=== PATIENT | female | born 1950 | race Caucasian/White ===

== ENCOUNTER 2017-10-22 16:29 | Inpatient (IN) | payer OTHER, MEDICARE ==
[2017-10-22] MEDS: IV NORMAL SALINE 1000ML BAG 1,000 ML IV ×2 (17:00→19:36)
[2017-10-22 17:07] LABS: BILIRUBIN,URINE MODERATE (NEG); CLARITY,URINE TURBID; COLOR,URINE AMBER; GLUCOSE,URINE NEGATIVE (NEG); NITRITE,URINE NEGATIVE (NEG); PH,URINE 5.5; PROTEIN,URINE 30 mg/dL (NEG-TRACE)
[2017-10-22 17:13] LABS: BACTERIA,URINE MANY /HPF (0-FEW); WBC,URINE TNTC /HPF (0-4)
[2017-10-22 17:38] LABS: ADD MAN DIFF? NO
[2017-10-22 17:40] LABS: BASO % 0 % (0-3); EOS % 0 % (0-3); HEMATOCRIT 46.7 % (36.0-47.0); HEMOGLOBIN 15.2 g/dL (12.0-15.5); LYMPH # 2.3 x10^3/uL (1.0-4.8); LYMPH % 15 % (24-48); MEAN CORPUSCULAR HEMOGLOBIN 29 pg (25-35); MEAN CORPUSCULAR HGB CONC 33 g/dL (31-37); MEAN CORPUSCULAR VOLUME 89 fL (79-100); MONO # 0.7 x10^3/uL (0.0-1.1); MONO % 5 % (0-9); NEUT # 12.1 x10^3uL (1.8-7.7); NEUT % 80 % (31-73); PLATELET COUNT 276 x10^3/uL (140-400); RED BLOOD COUNT 5.24 x10^6/uL (3.50-5.40); RED CELL DISTRIBUTION WIDTH 14.7 % (11.5-14.5); WHITE BLOOD COUNT 15.1 x10^3/uL (4.0-11.0)
[2017-10-22 17:58] LABS: LACTIC ACID 3.5 mmol/L (0.4-2.0)
[2017-10-22 18:13] LABS: ALBUMIN 2.3 g/dL (3.4-5.0); ALBUMIN/GLOBULIN RATIO 0.5 (1.0-1.7); ALK PHOS 68 U/L (46-116); ALT (SGPT) 9 U/L (14-59); ANION GAP 12 (6-14); AST (SGOT) 12 U/L (15-37); BLOOD UREA NITROGEN 68 mg/dL (7-20); BUN/CREATININE RATIO 45 (6-20); CALCIUM 9.4 mg/dL (8.5-10.1); CARBON DIOXIDE 26 mmol/L (21-32); CHLORIDE 119 mmol/L (98-107); CREATININE 1.5 mg/dL (0.6-1.0); GFR 34.4; GLUCOSE 94 mg/dL (70-99); SODIUM 157 mmol/L (136-145); TOTAL BILIRUBIN 0.5 mg/dL (0.2-1.0); TOTAL PROTEIN 6.8 g/dL (6.4-8.2)
[2017-10-22 18:23] LABS: POTASSIUM 2.9 mmol/L (3.5-5.1)
[2017-10-22] MEDS ORDERED: IV NORMAL SALINE 1000ML BAG 1,000 ML IV (18:56)
[2017-10-22] MEDS ORDERED: PIP/TAZO PER PHARMACY MC (19:00)
[2017-10-22] MEDS ORDERED: ONDANSETRON PF 4 MG/2 ML VIAL. IV (19:00)
[2017-10-22] MEDS ORDERED: ACETAMINOPHEN 325 MG TABLET. PO (19:00)
[2017-10-22] MEDS ORDERED: fentaNYL PF VIAL 100 MCG/2 ML VIAL IV (19:00)
[2017-10-22] MEDS: VANCOMYCIN 1.5 GM in IV 1/2 NORMAL SALINE 500 ML IV (19:35)
[2017-10-22] MEDS: PIPERACILLIN/TAZOBACTAM 3.375 GM in IV NORMAL SALINE 50ML 50 ML IV (19:36)
[2017-10-22] MEDS: POTASSIUM CHLORIDE 10MEQ 100 ML IV ×4 (19:36→23:14)
[2017-10-22] MEDS: VANCOMYCIN PER PHARMACY MC (19:46)
[2017-10-22 21:59] LABS: LACTIC ACID 2.1 mmol/L (0.4-2.0)
[2017-10-23] MEDS: PIPERACILLIN/TAZOBACTAM 3.375 GM in IV NORMAL SALINE 50ML 50 ML IV ×4 (00:30→17:29)
[2017-10-23] MEDS: IV 1/2 NORMAL SALINE 500 ML IV (01:16)
[2017-10-23] MEDS ORDERED: PNEUMOCOCCAL VAX SCREEN BY RX. MC (02:45)
[2017-10-23] MEDS: IV 1/2 NORMAL SALINE 1,000 ML IV (03:37)
[2017-10-23 04:54] LABS: ANION GAP 17 (6-14); BLOOD UREA NITROGEN 56 mg/dL (7-20); CALCIUM 8.9 mg/dL (8.5-10.1); CARBON DIOXIDE 22 mmol/L (21-32); CHLORIDE 118 mmol/L (98-107); CREATININE 1.3 mg/dL (0.6-1.0); GFR 40.6; GLUCOSE 62 mg/dL (70-99); SODIUM 157 mmol/L (136-145)
[2017-10-23 08:25] LABS: ADD MAN DIFF? NO; BASO % 0 % (0-3); EOS % 0 % (0-3); HEMATOCRIT 37.8 % (36.0-47.0); HEMOGLOBIN 11.9 g/dL (12.0-15.5); LYMPH # 2.2 x10^3/uL (1.0-4.8); LYMPH % 20 % (24-48); MEAN CORPUSCULAR HEMOGLOBIN 29 pg (25-35); MEAN CORPUSCULAR HGB CONC 32 g/dL (31-37); MEAN CORPUSCULAR VOLUME 91 fL (79-100); MONO # 0.6 x10^3/uL (0.0-1.1); MONO % 6 % (0-9); NEUT # 8.3 x10^3uL (1.8-7.7); NEUT % 74 % (31-73); PLATELET COUNT 168 x10^3/uL (140-400); RED BLOOD COUNT 4.16 x10^6/uL (3.50-5.40); RED CELL DISTRIBUTION WIDTH 14.6 % (11.5-14.5); WHITE BLOOD COUNT 11.1 x10^3/uL (4.0-11.0)
[2017-10-23] MEDS ORDERED: NOREPINEPHRIN 8MG/250ML PREMIX 250 ML IV (09:03)
[2017-10-23 09:10] LABS: BASE EXCESS ABG -4 mmol/L (-3-3); HCO3 ABG 22 mmol/L (21-28); PCO2 ABG 41 mmHg (35-46); PH ABG 7.34 (7.35-7.45); PO2 ABG 336 mmHg (65-108); SAT O2 ABG 99 % (92-99)
[2017-10-23 09:17] LABS: FIO2 ABG 100
[2017-10-23 09:19] LABS: POC GLUCOSE 67 mg/dL (70-99)
[2017-10-23 09:21] LABS: POC GLUCOSE 93 mg/dL (70-99)
[2017-10-23] MEDS ORDERED: ONDANSETRON PF 4 MG/2 ML VIAL. IV (10:30)
[2017-10-23] MEDS ORDERED: ACETAMINOPHEN 325 MG TABLET. PO (10:30)
[2017-10-23] MEDS ORDERED: DOCUSATE SODIUM 100 MG CAPSULE. PO (10:30)
[2017-10-23] MEDS ORDERED: traMADol 50 MG TABLET PO (10:30)
[2017-10-23] MEDS ORDERED: hydrALAZINE 20 MG/ML VIAL. IVP (10:30)
[2017-10-23 10:42] LABS: THYROID STIM HORMONE (TSH) 4.257 uIU/mL (0.358-3.74)
[2017-10-23] MEDS: MORPHINE SULFATE 2 MG/ML DISP.SYRIN. IV (10:48)
[2017-10-23] MEDS: NOREPINEPHRIN 8MG/250ML PREMIX 250 ML IV (10:48)
[2017-10-23] MEDS: IV NORMAL SALINE 1000ML BAG 1,000 ML IV (10:49)
[2017-10-23] MEDS: IV DEXTROSE 5% 1,000 ML IV ×2 (11:32→19:27)
[2017-10-23 11:36] LABS: SEDIMENTATION RATE 30 (0-25)
[2017-10-23] MEDS: VANCOMYCIN PER PHARMACY MC (12:08)
[2017-10-23 12:20] LABS: TROPONINI 0.042 ng/mL (0.000-0.055)
[2017-10-23 12:23] LABS: FREE T4 1.22 ng/dL (0.76-1.46)
[2017-10-23] MEDS: HEPARIN PF for SUB-Q USE 5,000 UNIT/0.5 ML VIAL. SQ ×2 (14:04→22:06)
[2017-10-23] MEDS: FUROSEMIDE 40 MG/4 ML VIAL. IVP (14:34)
[2017-10-23] MEDS ORDERED: VANCOMYCIN 1 GM in IV DEXTROSE 5% 250 ML IV (19:00)
[2017-10-23] MEDS: VANCOMYCIN 1 GM in IV NORMAL SALINE 250ML 250 ML IV (19:25)
[2017-10-23 20:09] LABS: TROPONINI 0.048 ng/mL (0.000-0.055)
[2017-10-23 21:20] LABS: POC GLUCOSE 116 mg/dL (70-99)
[2017-10-23] MEDS: FAMOTIDINE 20 MG/2 ML VIAL IVP (21:58)
[2017-10-24 00:26] LABS: POC GLUCOSE 163 mg/dL (70-99)
[2017-10-24] MEDS: PIPERACILLIN/TAZOBACTAM 3.375 GM in IV NORMAL SALINE 50ML 50 ML IV ×4 (00:26→18:11)
[2017-10-24 04:57] LABS: ADD MAN DIFF? NO
[2017-10-24 05:07] LABS: BASO % 0 % (0-3); EOS % 0 % (0-3); HEMATOCRIT 36.1 % (36.0-47.0); HEMOGLOBIN 11.9 g/dL (12.0-15.5); LYMPH # 2.6 x10^3/uL (1.0-4.8); LYMPH % 17 % (24-48); MEAN CORPUSCULAR HEMOGLOBIN 29 pg (25-35); MEAN CORPUSCULAR HGB CONC 33 g/dL (31-37); MEAN CORPUSCULAR VOLUME 87 fL (79-100); MONO # 0.9 x10^3/uL (0.0-1.1); MONO % 6 % (0-9); NEUT # 11.4 x10^3uL (1.8-7.7); NEUT % 76 % (31-73); PLATELET COUNT 230 x10^3/uL (140-400); RED BLOOD COUNT 4.17 x10^6/uL (3.50-5.40); RED CELL DISTRIBUTION WIDTH 14.3 % (11.5-14.5)
[2017-10-24 05:36] LABS: ANION GAP 10 (6-14); BLOOD UREA NITROGEN 33 mg/dL (7-20); CALCIUM 8.1 mg/dL (8.5-10.1); CARBON DIOXIDE 25 mmol/L (21-32); CHLORIDE 115 mmol/L (98-107); CREATININE 1.3 mg/dL (0.6-1.0); GFR 40.6; GLUCOSE 177 mg/dL (70-99); SODIUM 150 mmol/L (136-145)
[2017-10-24 05:39] LABS: POTASSIUM 2.4 mmol/L (3.5-5.1)
[2017-10-24] MEDS: HEPARIN PF for SUB-Q USE 5,000 UNIT/0.5 ML VIAL. SQ ×3 (06:12→22:14)
[2017-10-24] MEDS: POTASSIUM CHLORIDE 40 MEQ in IV DEXTROSE 5% 1,000 ML IV ×2 (06:13→13:20)
[2017-10-24 06:27] LABS: POC GLUCOSE 169 mg/dL (70-99)
[2017-10-24] MEDS: NOREPINEPHRIN 8MG/250ML PREMIX 250 ML IV ×2 (08:27→22:10)
[2017-10-24] MEDS: IPRATROPIUM BROMIDE 0.5 MG/2.5 ML NEBU. NEB ×4 (09:15→20:03)
[2017-10-24] MEDS: VANCOMYCIN PER PHARMACY MC ×2 (10:15→19:29)
[2017-10-24 13:10] LABS: POC GLUCOSE 196 mg/dL (70-99)
[2017-10-24 19:01] LABS: VANC TR 19.8 mcg/mL (10.0-20.0)
[2017-10-24] MEDS: VANCOMYCIN 1 GM in IV NORMAL SALINE 250ML 250 ML IV (19:12)
[2017-10-24 19:21] LABS: POC GLUCOSE 253 mg/dL (70-99)
[2017-10-24] MEDS: FAMOTIDINE 20 MG/2 ML VIAL IVP (22:09)
[2017-10-24] MEDS: IV DEXTROSE 5% 1,000 ML IV (22:10)
[2017-10-24] MEDS: MORPHINE SULFATE 2 MG/ML DISP.SYRIN. IV (22:12)
[2017-10-25] MEDS: PIPERACILLIN/TAZOBACTAM 3.375 GM in IV NORMAL SALINE 50ML 50 ML IV ×5 (00:38→23:50)
[2017-10-25] MEDS: MORPHINE SULFATE 2 MG/ML DISP.SYRIN. IV (02:58)
[2017-10-25] MEDS: HEPARIN PF for SUB-Q USE 5,000 UNIT/0.5 ML VIAL. SQ ×3 (05:52→21:05)
[2017-10-25 06:03] LABS: ADD MAN DIFF? NO
[2017-10-25 06:11] LABS: BASO % 0 % (0-3); EOS % 0 % (0-3); HEMATOCRIT 35.1 % (36.0-47.0); HEMOGLOBIN 11.5 g/dL (12.0-15.5); LYMPH # 2.5 x10^3/uL (1.0-4.8); LYMPH % 16 % (24-48); MEAN CORPUSCULAR HEMOGLOBIN 28 pg (25-35); MEAN CORPUSCULAR HGB CONC 33 g/dL (31-37); MEAN CORPUSCULAR VOLUME 87 fL (79-100); MONO # 0.9 x10^3/uL (0.0-1.1); MONO % 6 % (0-9); NEUT # 12.1 x10^3uL (1.8-7.7); NEUT % 78 % (31-73); PLATELET COUNT 242 x10^3/uL (140-400); RED BLOOD COUNT 4.05 x10^6/uL (3.50-5.40); WHITE BLOOD COUNT 15.5 x10^3/uL (4.0-11.0)
[2017-10-25 06:35] LABS: ALBUMIN 1.8 g/dL (3.4-5.0); ALBUMIN/GLOBULIN RATIO 0.4 (1.0-1.7); ALK PHOS 74 U/L (46-116); ALT (SGPT) 14 U/L (14-59); ANION GAP 11 (6-14); AST (SGOT) 28 U/L (15-37); BLOOD UREA NITROGEN 20 mg/dL (7-20); BUN/CREATININE RATIO 14 (6-20); CALCIUM 7.8 mg/dL (8.5-10.1); CARBON DIOXIDE 23 mmol/L (21-32); CHLORIDE 112 mmol/L (98-107); CREATININE 1.4 mg/dL (0.6-1.0); GFR 37.3; GLUCOSE 159 mg/dL (70-99); MAGNESIUM 1.3 mg/dL (1.8-2.4); SODIUM 146 mmol/L (136-145); TOTAL BILIRUBIN 0.7 mg/dL (0.2-1.0); TOTAL PROTEIN 5.9 g/dL (6.4-8.2)
[2017-10-25 06:36] LABS: POTASSIUM 2.7 mmol/L (3.5-5.1)
[2017-10-25] MEDS: POTASSIUM CHLORIDE 40 MEQ in IV DEXTROSE 5% 1,000 ML IV ×2 (08:01→17:58)
[2017-10-25] MEDS: IPRATROPIUM BROMIDE 0.5 MG/2.5 ML NEBU. NEB ×4 (08:59→19:56)
[2017-10-25] MEDS: MAGNESIUM SULFATE 2GM 50 ML IV (10:20)
[2017-10-25] MEDS: NOREPINEPHRIN 8MG/250ML PREMIX 250 ML IV ×2 (10:21→21:05)
[2017-10-25] MEDS: VANCOMYCIN PER PHARMACY MC (14:37)
[2017-10-25] MEDS: VANCOMYCIN 1 GM in IV NORMAL SALINE 250ML 250 ML IV (19:05)
[2017-10-25] MEDS: FAMOTIDINE 20 MG/2 ML VIAL IVP (21:04)
[2017-10-25] MEDS ORDERED: IV DEXTROSE 5% 1,000 ML IV (23:00)
[2017-10-26 05:40] LABS: POTASSIUM 3.2 mmol/L (3.5-5.1)
[2017-10-26] MEDS: PIPERACILLIN/TAZOBACTAM 3.375 GM in IV NORMAL SALINE 50ML 50 ML IV ×3 (05:44→18:46)
[2017-10-26] MEDS: HEPARIN PF for SUB-Q USE 5,000 UNIT/0.5 ML VIAL. SQ ×3 (05:44→21:35)
[2017-10-26] MEDS: IPRATROPIUM BROMIDE 0.5 MG/2.5 ML NEBU. NEB ×4 (08:00→20:14)
[2017-10-26] MEDS ORDERED: AMINO AC 3%/ELECTROLYTE/GLYCER 1,000 ML IV (09:00)
[2017-10-26] MEDS: POTASSIUM CL 40MEQ D5-0.45NACL 1,000 ML IV (09:02)
[2017-10-26] MEDS: SCOPOLAMINE 1.5MG PATCH. TD (09:05)
[2017-10-26] MEDS ORDERED: ADENOSINE 6 MG/2 ML VIAL. IV ×4 (10:41→11:00)
[2017-10-26] MEDS: ADENOSINE 6 MG/2 ML VIAL. IV ×2 (11:03→11:04)
[2017-10-26] MEDS: dilTIAZem IV PUSH 25 MG/5 ML VIAL IVP (11:10)
[2017-10-26] MEDS: DIGOXIN IV 500 MCG/2 ML AMPUL. IV (11:22)
[2017-10-26] MEDS: IV NORMAL SALINE 500ML BAG 500 ML IV (11:31)
[2017-10-26 11:54] LABS: MAGNESIUM 1.8 mg/dL (1.8-2.4)
[2017-10-26] MEDS: MICONAZOLE NITRATE 2% TOPICAL CREAM 28GM TUBE. TP ×2 (12:03→21:35)
[2017-10-26] MEDS: MAGNESIUM SULFATE 2GM 50 ML IV (12:10)
[2017-10-26] MEDS: VANCOMYCIN PER PHARMACY MC (15:18)
[2017-10-26] MEDS: NOREPINEPHRIN 8MG/250ML PREMIX 250 ML IV (18:47)
[2017-10-26] MEDS: VANCOMYCIN 1 GM in IV NORMAL SALINE 250ML 250 ML IV (21:35)
[2017-10-26] MEDS: FAMOTIDINE 20 MG/2 ML VIAL IVP (21:36)
[2017-10-27] MEDS: PIPERACILLIN/TAZOBACTAM 3.375 GM in IV NORMAL SALINE 50ML 50 ML IV ×4 (00:28→17:35)
[2017-10-27] MEDS: AMINO AC 3%/ELECTROLYTE/GLYCER 1,000 ML IV ×3 (00:29→21:20)
[2017-10-27 04:47] LABS: ANION GAP 11 (6-14); BLOOD UREA NITROGEN 11 mg/dL (7-20); CALCIUM 7.9 mg/dL (8.5-10.1); CARBON DIOXIDE 23 mmol/L (21-32); CHLORIDE 117 mmol/L (98-107); GLUCOSE 100 mg/dL (70-99); MAGNESIUM 2.2 mg/dL (1.8-2.4); POTASSIUM 3.5 mmol/L (3.5-5.1); SODIUM 151 mmol/L (136-145)
[2017-10-27] MEDS: HEPARIN PF for SUB-Q USE 5,000 UNIT/0.5 ML VIAL. SQ ×3 (06:19→21:21)
[2017-10-27] MEDS: MORPHINE SULFATE 2 MG/ML DISP.SYRIN. IV ×2 (06:19→21:32)
[2017-10-27] MEDS: IPRATROPIUM BROMIDE 0.5 MG/2.5 ML NEBU. NEB ×4 (08:05→20:01)
[2017-10-27] MEDS: MICONAZOLE NITRATE 2% TOPICAL CREAM 28GM TUBE. TP ×2 (09:05→21:20)
[2017-10-27] MEDS: VANCOMYCIN PER PHARMACY MC ×3 (13:10→19:46)
[2017-10-27] MEDS: NOREPINEPHRIN 8MG/250ML PREMIX 250 ML IV (13:50)
[2017-10-27] MEDS: FAMOTIDINE 20 MG/2 ML VIAL IVP (21:20)
[2017-10-28] MEDS: MORPHINE SULFATE 2 MG/ML DISP.SYRIN. IV (03:37)
[2017-10-28] MEDS: PIPERACILLIN/TAZOBACTAM 3.375 GM in IV NORMAL SALINE 50ML 50 ML IV ×3 (06:24→12:46)
[2017-10-28] MEDS: HEPARIN PF for SUB-Q USE 5,000 UNIT/0.5 ML VIAL. SQ (06:26)
[2017-10-28] MEDS: MICONAZOLE NITRATE 2% TOPICAL CREAM 28GM TUBE. TP (07:56)
[2017-10-28 07:57] LABS: ANION GAP 10 (6-14); BLOOD UREA NITROGEN 21 mg/dL (7-20); CALCIUM 7.5 mg/dL (8.5-10.1); CARBON DIOXIDE 23 mmol/L (21-32); CHLORIDE 112 mmol/L (98-107); CREATININE 0.9 mg/dL (0.6-1.0); GFR 62.1; GLUCOSE 89 mg/dL (70-99); POTASSIUM 3.3 mmol/L (3.5-5.1); SODIUM 145 mmol/L (136-145)
[2017-10-28] MEDS: VANCOMYCIN 750 MG in IV DEXTROSE 5% 250 ML IV (07:57)
[2017-10-28] MEDS: VANCOMYCIN PER PHARMACY MC (07:59)
[2017-10-28] MEDS: IPRATROPIUM BROMIDE 0.5 MG/2.5 ML NEBU. NEB ×2 (08:01→11:34)
[2017-10-28] MEDS: POTASSIUM CHLORIDE 20 MEQ/15 ML ORAL LIQUID. PEG (09:01)
[2017-10-28 22:19] LABS: MRSA BY PCR Negative (Negative)
[2017-10-29] MEDS ORDERED: POTASSIUM CHLORIDE 20 MEQ/15 ML ORAL LIQUID. PEG (09:00)
== END 2017-10-28 15:31 | DRG 871 ==
LOC: ER 16:29 → 1 WEST ICU 10-23 08:41 → 5 NORTH 18:17
DX: A41.9 Sepsis, unspecified organism (principal); L89.154 Pressure ulcer of sacral region, stage 4; E43 Unspecified severe protein-calorie malnutrition; G93.41 Metabolic encephalopathy; J96.01 Acute respiratory failure with hypoxia; J69.0 Pneumonitis due to inhalation of food and vomit; R65.21 Severe sepsis with septic shock; N17.9 Acute kidney failure, unspecified; E87.0 Hyperosmolality and hypernatremia; N39.0 Urinary tract infection, site not specified; E87.1 Hypo-osmolality and hyponatremia; I47.1 Supraventricular tachycardia; Z68.1 Body mass index [BMI] 19.9 or less, adult; I48.2 Chronic atrial fibrillation; F03.90 Unspecified dementia, unspecified severity, without behavioral disturbance, psychotic disturbance, mood disturbance, and anxiety; Z51.5 Encounter for palliative care; E87.6 Hypokalemia; Z66 Do not resuscitate; R62.7 Adult failure to thrive; E86.9 Volume depletion, unspecified; E83.42 Hypomagnesemia; Z86.718 Personal history of other venous thrombosis and embolism; Z90.710 Acquired absence of both cervix and uterus; Z85.841 Personal history of malignant neoplasm of brain; Z82.49 Family history of ischemic heart disease and other diseases of the circulatory system; Z74.01 Bed confinement status; Z85.41 Personal history of malignant neoplasm of cervix uteri
CPT/HCPCS: 36415; 36600; 71045; 74018; 80048; 80053; 80202; 81001; 82565; 82805; 82962; 83605; 83735; 84132; 84439; 84443; 84481; 84484; 85025; 85651; 87040; 87086; 87641; 93005; 93306; 94640; 94760; 96365; 96368; 99285; 99285-25; J0153; J1160; J1940; J2270; J2543; J3370; J3475; J3480; J3490; J7030; J7040; J7042; J7050; J7644; S0028

== ENCOUNTER 2018-01-28 03:20 | Emergency (ER) | payer OTHER, MEDICARE ==
[~2018-01-28] VITALS: Ht 162.6 cm; Wt 61.7 kg
[~2018-01-28 03:20] MED LIST: ATROVENT HFA12.9 GM IH; DOCU100C28 PO; FAMO20TA5 PO; HYDR-2867 PO; MICO85PO2 TP; PIPE3.3734 IV; TRAM50TA PO; VANC750F2 IV; [UNRECOGNIZED DRUG - CODE] IV
--- NOTE | 2018-01-28 04:07 | PHYS DOC ---
Past Medical History Past Medical History: A-Fib, Cancer, Dementia Additional Past Medical Histor: NON-HODGKINS LYMPHOMA, STEM CELL TRANSPLANTS, colostomy bag Past Medical History Unable to obtain. Nonverbal at baseline. Past Surgical History: Cancer Surgery, Hysterectomy Additional Past Surgical Histo: BRAIN TUMOR, CERVICAL CANCER Past Surgical History Unable to obtain. Nonverbal at baseline. Alcohol Use: None Drug Use: None Social History Unable to obtain. Nonverbal at baseline. Adult General Chief Complaint Chief Complaint: GTUBE REPLACEMENT/MALFUNCTION HPI HPI 67-year-old female with past medical history of brain cancer and dementia who is nonverbal at baseline presents via EMS from senior care with report of nonfunctioning G-tube. EMS reports they think G-tube has been intact for some time. Report nursing was unable to flush the line despite using [employer]. Denies other report. History of present illness limited given patient nonverbal at baseline. Review of Systems Review of Systems Constitutional: Denies fever or chills [] GI: Denies nausea, vomiting, Review of systems limited given patient nonverbal at baseline. Allergies Allergies Allergies Coded Allergies Type Severity Reaction Last Updated Verified adhesive tape Allergy Intermediate 10/23/17 Yes Physical Exam Physical Exam Constitutional: Patient appears frail and cachectic HENT: Normocephalic, atraumatic, oropharynx dry Eyes: Conjunctiva normal, no discharge. [] Neck: Supple, no swelling Cardiovascular: Heart rate regular rhythm, no murmur [] Lungs & Thorax: Bilateral breath sounds clear to auscultation [] Abdomen: Soft, no tenderness, G-tube noted with caked tube feed noted throughout lumen, surrounding skin intact, no leakage appreciated Skin: Warm, dry, no erythema, no rash. [] Extremities: muscular strictures noted, no edema. [] Neurologic: Alert, non-distinct sounds made, patient will intermittently follow commands Current Patient Data Vital Signs Vital Signs Date Time Temp Pulse Resp B/P (MAP) Pulse Ox O2 Delivery O2 Flow Rate FiO2 01/28/18 03:25 98.2 85 18 137/85 (102) 95 Room Air 98.2 EKG EKG [] Radiology/Procedures Radiology/Procedures [] Course & Med Decision Making Course & Med Decision Making Pertinent Labs and Imaging studies reviewed. (See chart for details) Elderly patient with past medical history of brain cancer and dementia who is nonverbal at baseline presents with concern for G-tube malfunction/clogging. Significant caking noted intrapulmonary. No discharge or erythema surrounding G- tube insertion site noted. halfway did not send replacement G-tube flushing with water performed with interval resolution and unclogging.Patient stable for discharge with outpatient follow-up with PCP/GI. GI referral provided. Report called to senior care. Dragon Disclaimer Dragon Disclaimer This electronic medical record was generated, in whole or in part, using a voice recognition dictation system. Departure Departure Impression: Primary Impression: Feeding tube blocked Disposition: 03 TRANSFER SNF (back to SNF) Condition: IMPROVED Referrals: UNKNOWN PCP NAME (PCP) SUSANA AMIN MD Patient Instructions: Care of a Feeding Tube, [id number] Additional Instructions: Please call and make appointment with GI specialist for replacement of tube. We have temporarily been able to unblock the tube. Given its current condition , it will likely need a full replacement. Make appointment with GI specialist regarding. This can be performed as an outpatient procedure. Problem Qualifiers Primary Impression: Feeding tube blocked Encounter type: initial encounter Qualified Codes: T85.598A - Other mechanical complication of other gastrointestinal prosthetic devices, implants and grafts, initial encounter SASCHA LAW DO Jan 28, 2018 04:07
[2018-01-28 05:10] VITALS: BP 134/84
== END 2018-01-28 05:18 ==
LOC: ER 03:20
DX: T85.598A Other mechanical complication of other gastrointestinal prosthetic devices, implants and grafts, initial encounter (principal); F03.90 Unspecified dementia, unspecified severity, without behavioral disturbance, psychotic disturbance, mood disturbance, and anxiety; I48.91 Unspecified atrial fibrillation; Z93.3 Colostomy status; Z90.710 Acquired absence of both cervix and uterus; Z88.8 Allergy status to other drugs, medicaments and biological substances; Y83.3 Surgical operation with formation of external stoma as the cause of abnormal reaction of the patient, or of later complication, without mention of misadventure at the time of the procedure; Y92.89 Other specified places as the place of occurrence of the external cause
CPT/HCPCS: 99284